=== PATIENT | female | born 1980 | race Caucasian/White ===

== ENCOUNTER → 2018-04-04 | Outpatient (CLI) | payer BC ==
[~2018-04-04] MED LIST: GLUCOPHAGE500 MG/TAB PO; PRENATAL1 TA1 PO; PRILOSEC10 MG PO; PROVERA5 MG PO; [UNRECOGNIZED DRUG - OTHER]
== END ==
LOC: COL.RAD 08:45
DX: R10.11 Right upper quadrant pain (principal); R11.2 Nausea with vomiting, unspecified

== ENCOUNTER → 2018-04-07 | Outpatient (CLI) | payer BC | LOC: COL.RAD 09:50 | DX: R10.11 Right upper quadrant pain (principal) | CPT/HCPCS: A9537 ==